=== PATIENT | female | born 1990 | race African-American/Black ===

== ENCOUNTER 2020-08-15 21:15 | Observation (INO) | payer MEDICAID ==
[~2020-08-15] VITALS: Ht 165.1 cm; Wt 90.7 kg
== END 2020-08-16 00:10 | disposition home or self-care (01) ==
LOC: SPU 21:15
PROVIDERS: ADMIT Obstetrics & Gynecology; ATTEND Obstetrics & Gynecology
DX: O36.8130 Decreased fetal movements, third trimester, not applicable or unspecified (principal); Z3A.35 35 weeks gestation of pregnancy
CPT/HCPCS: 76815; G0378

== ENCOUNTER 2020-10-14 02:08 | Emergency (ER) | payer MEDICAID, SELFPAY ==
[~2020-10-14] VITALS: Ht 165.1 cm; Wt 83.9 kg
[2020-10-14 02:18] VITALS: BP_SYST 126
--- NOTE | 2020-10-14 02:20 | NUR ---
Placed in room 8 . Placed on evaluation assistant, blood pressure machine and pulse oximeter. Side rails up.
--- NOTE | 2020-10-14 02:21 | NUR ---
DR. SETHI AT BEDSIDE TO EVALUATE PT STATUS
--- NOTE | 2020-10-14 02:27 | NUR ---
Pt presents to ER c/o sob and difficulty taking deep breaths x 10/08/20. Pt states s/s have worsen. Pt also states not sleeping well at night. Pt recently gave on 08/24/20. Pt states no diagnosed hx of asthma. Pt O2 saturation at 99% RA. Pt has hx of sickle cell. Denies any exposure to COVID.
[2020-10-14] MEDS ORDERED: IPRATROPIUM/ALBUTEROL SULFATE 3 ML AMPUL.NEB (DUONEB) INH ONE (02:30)
[2020-10-14] MEDS ORDERED: IPRATROPIUM/ALBUTEROL SULFATE 3 ML AMPUL.NEB (DUONEB) ONE (02:31)
--- NOTE | 2020-10-14 02:55 | NUR ---
ALEJANDRO SIGALA SENT TO LAB FOR ANALYSIS
--- NOTE | 2020-10-14 03:09 | NUR ---
REPORT GIVEN TO ROBERT STEELE WHO WILL ASSUME CARE.
[2020-10-14 03:51] LABS: CALCIUM 8.6 mg/dL (8.4-11.0); CREATININE 1.01 mg/dL (0.55-1.30); POTASSIUM 3.5 mmol/L (3.5-5.1)
[2020-10-14 03:52] LABS: BASOPHILS % (AUTO) 0.2 % (0.0-2.0); EOSINOPHILS # (AUTO) 0.1 K/uL (0.0-0.4); EOSINOPHILS % (AUTO) 2.1 % (0.0-4.0); HEMOGLOBIN 10.9 g/dL (12.0-16.0); LYMPHOCYTES # (AUTO) 1.7 K/uL (1.0-5.5); LYMPHOCYTES % (AUTO) 33.3 % (20.5-51.5); MEAN CORPUSCULAR HEMOGLOBIN 27 pg (27-31); MEAN CORPUSCULAR HGB CONC 35 % (32-36); MEAN CORPUSCULAR VOLUME 76 fL (79.0-98.0); MONOCYTES # (AUTO) 0.3 K/uL (0.0-1.0); NEUTROPHILS % (AUTO) 58.4 % (40.0-70.0); PLATELET COUNT (AUTO) 149 K/uL (130-430); RED BLOOD CELL COUNT(AUTO) 4.05 MIL/uL (4.2-6.2); RED CELL DISTRIBUTION WIDTH 19.6 % (9.0-15.0); WHITE BLOOD COUNT (AUTO) 5.1 K/uL (4.8-10.8)
[2020-10-14 03:56] LABS: ALBUMIN 4.2 g/dL (3.4-4.8); TOTAL BILIRUBIN 2.6 mg/dL (0.0-1.0)
--- NOTE | 2020-10-14 04:10 | NUR ---
Patient given written and verbal discharge instructions and verbalizes understanding. ER MD discussed with patient the results and treatment provided. Patient in stable condition. ID arm band removed.
[2020-10-14 04:16] VITALS: BP_SYST 126
== END 2020-10-14 04:16 | disposition home or self-care (01) ==
LOC: SED 02:08
DX: J45.901 Unspecified asthma with (acute) exacerbation (principal); R06.02 Shortness of breath; J45.909 Unspecified asthma, uncomplicated; Z20.822 Contact with and (suspected) exposure to COVID-19
CPT/HCPCS: 36415; 71045; 80053; 81025; 85025; 94640; 99284